=== PATIENT | female | born 2005 | race Two or more races ===

== ENCOUNTER 2024-09-02 06:40 | Emergency (ER) | payer MEDICAID, SELFPAY ==
[2024-09-02 06:41] VITALS: BMI 42.2
[2024-09-02 06:51] VITALS: BP 133/80; PULSE 109; RESP 16; TEMP 36.7; O2SAT 98
[2024-09-02] MEDS: ACETAMINOPHEN 500 MG TABLET 1000 MG PO (07:11)
[2024-09-02 07:35] LABS: Collection Type, Urine Clean Catch
[2024-09-02 07:42] LABS: Basophils # (Auto) 0.1 Thou/mm3 (0.0-0.2); Basophils % (Auto) 1 % (0-2.5); Eosinophils # (Auto) 1.5 Thou/mm3 (0.0-0.5); Eosinophils % (Auto) 14 % (0-10); Hematocrit 38.8 % (36.0-46.0); Hemoglobin 12.2 g/dL (12.0-16.0); Immature Granulocytes % (Auto) 0 % (0-0); Immature Granulocytes Auto 0.03 Thou/mm3 (0.00-0.00); Lymphocytes # (Auto) 2.6 Thou/mm3 (1.0-5.0); Lymphocytes % (Auto) 25 % (10-50); Mean Corpuscular HGB Conc 31.4 g/dl (31.0-37.0); Mean Corpuscular Hemoglobin 24.4 pg (25.0-35.0); Mean Corpuscular Volume 78 fL (80-100); Monocytes % (Auto) 9 % (0-12); Neutrophils # (Auto) 5.2 Thou/mm3 (1.8-7.7); Neutrophils % (Auto) 50 % (37-80); Nucleated Red Blood Cell % 0 /100 WBC (0); Platelet Count 417 Thou/mm3 (140-440); RDW Standard Deviation 39.8 fL (36.4-46.3); White Blood Count 10.3 Thou/mm3 (4.5-11.0)
--- NOTE | 2024-09-02 07:43 | XR_ITS ---
Examination: Transvaginal ultrasound of the pelvis, complete Technique: Transvaginal sonographic images pelvis performed using willis scale imaging Exam date and time: September 02, 2024 0742 hours INDICATIONS: Pelvic pain and vomiting beginning 2 months ago FINDINGS: Uterus 7.4 x 3.8 x 4.9 cm No uterine mass or intrauterine gestation Right ovary 3.1 x 2.2 x 2.2 cm arterial flow Left ovary 3.9 x 2.4 x 3.2 cm arterial flow, multiple follicles, the largest 20 mm Mild to moderate free fluid in the cul-de-sac IMPRESSION: No uterine mass or intrauterine gestation Mild to moderate free fluid in the cul-de-sac, clinical correlation advised.
[2024-09-02 07:51] LABS: HCG Qualitative,Urine Negative
[2024-09-02 07:55] LABS: Bilirubin,Urine Negative (Negative); Blood,Urine Negative (Negative); Clarity,Urine Clear (Clear/Hazy); Color,Urine Lt-Yellow (Lt Yel-Yel); Culture Indicated,Urine Not Indicated; Glucose, Urine Negative (Negative); Ketones,Urine Negative (Negative); Leukocyte Esterase,Urine Negative (Negative); Nitrite,Urine Negative (Negative); Protein,Urine Negative (Neg - Trace); RBC,Urine 1 /hpf (0-3); Specific Gravity,Urine 1.013 (1.001-1.035); Squamous Epithelial Cell,Urine 6 /hpf (0-5); Urobilinogen,Urine Negative mg/dL (0.0-1.0); WBC,Urine 2 /hpf (0-5)
[2024-09-02 08:00] LABS: Alanine Aminotransferase 57 U/L (10-49); Albumin, Serum 4.6 gm/dL (3.5-5.0); Albumin/Globulin Ratio 1.4 (1.2-2.2); Alkaline Phosphatase 99 U/L (46-116); Anion Gap 6 (7-16); Aspartate Amino Transferase 42 U/L (0-34); BUN/Creatinine Ratio 8 Ratio (12-20); Bilirubin,Total 0.6 mg/dL (0.3-1.2); Blood Urea Nitrogen 5 mg/dL (9-23); Calcium 9.4 mg/dL (8.3-10.6); Calcium (Corrected) 9.4 mg/dL (8.5-10.1); Chloride 105 mMol/L (98-107); Creatinine (Component) 0.6 mg/dL (0.6-1.3); Estimated Creatinine Clearance 184.4 mL/min (>60); Globulin 3.3 gm/dL (2.3-3.5); Glucose 108 mg/dL (74-106); Osmolality,Calculated 270 (275-295); Potassium 3.7 mMol/L (3.4-5.1); Sodium 136 mMol/L (136-145); Total Protein 7.9 gm/dL (5.7-8.2); eGFR > 60 See Note
--- NOTE | 2024-09-02 08:34 | EDNOTE_ITS ---
ED Abdominal Pain RME/HPI General Chief Complaint: Abdominal Pain Stated complaint: PELVIC PAIN FOR 2 MONTHS Time seen by provider: 09/02/24 06:43 Arrival date/time: 09/02/24 06:40 18-year-old female presents emergency department complaints of pelvic pain ongoing x 2 months patient reports no fever nausea or vomiting patient does report dysuria there are no other associated symptoms or aggravating factors no other modifying factors, patient denies taking medication before coming to ER today Limitations: no limitations Related Data Previous Rx's ?Medication ?Instructions ?Recorded acetaminophen 500 mg tablet 1,000 mg (2 x 500 mg) PO Q6H PRN 03/10/24 (Tylenol Extra Strength) pain #60 tabs ibuprofen 600 mg tablet 600 mg PO Q6H PRN pain #30 tabs 03/10/24 methocarbamol 500 mg tablet 1,000 mg (2 x 500 mg) PO Q8H PRN 03/10/24 muscle pain #30 tabs ondansetron 4 mg disintegrating 4 mg PO Q8H PRN nausea and 04/15/24 tablet vomiting #10 tabs doxycycline hyclate 100 mg tablet 100 mg PO BID #14 tabs 09/02/24 ibuprofen 800 mg tablet 800 mg PO TID PRN pain #30 tabs 09/02/24 tramadol 50 mg tablet 50 mg PO BID PRN pain #6 tabs 09/02/24 Allergies Allergy/AdvReac Type Severity Reaction Status Date / Time Penicillins Allergy Verified 09/02/24 06:40 shrimp Allergy Verified 09/02/24 06:40 Review of Systems Review of Systems Systems Reviewed: All systems reviewed, normal except as documented Constitutional Constitutional: Reports system reviewed and no additional complaints, except as documented, Denies fever(s) and Denies headache(s) Eyes Eyes: Reports system reviewed and no additional complaints, except as documented and Denies blurry vision ENT Ears, Nose, Mouth, and Throat: Reports system reviewed and no additional complaints, except as documented, Denies headache(s), Denies nasal congestion and Denies nasal discharge Cardiovascular Cardiovascular: Reports system reviewed and no additional complaints, except as documented, Denies chest pain and Denies dyspnea Respiratory Respiratory: Reports system reviewed and no additional complaints, except as documented, Denies chest congestion, Denies cough and Denies dyspnea Gastrointestinal Gastrointestinal: Reports system reviewed and no additional complaints, except as documented and Denies abdominal pain Genitourinary Genitourinary: Reports system reviewed and no additional complaints, except as documented, Denies abnormal vaginal bleeding and Reports pelvic pain Integumentary/Breasts Skin/Breast: Reports system reviewed and no additional complaints, except as documented and Denies rash Neurologic Neurologic: Reports system reviewed and no additional complaints, except as documented, Reports as per HPI and Denies headache(s) Past Medical History Past Medical History NEUROLOGIC: Negative Neurological Disorders CARDIAC: Negative Cardiac Disorders ED Exam General Limitations: Present no limitations General appearance: Present alert and in no apparent distress Head Head exam: Present atraumatic Eye Eye exam: Present normal appearance, PERRL and EOMI ENT ENT exam: Present normal exam, normal oropharynx and mucous membranes moist Neck Neck exam: Present normal inspection, full ROM and trachea midline Chest Chest inspection: Present normal inspection and symmetric chest wall rise Respiratory Respiratory exam: Present normal lung sounds bilaterally; Absent respiratory distress Cardiovascular Cardiovascular exam: Present regular rate, normal rhythm and normal heart sounds Abdominal Exam Abdominal exam: Present soft and normal bowel sounds; Absent distention, tenderness, guarding, rebound or rigidity Extremities Exam Extremities exam: Present normal inspection and full ROM Back Exam Back exam: Present normal inspection and full ROM Neurological Exam Neurological exam: Present alert, oriented X3 and CN II-XII intact Psychiatric Psychiatric exam: Present normal affect and normal mood Skin Skin exam: Present warm, dry, intact and normal color Course Quality Measures none Orders Category Date Time Status US transvaginal Stat Exams 09/02/24 07:43 Taken CBC Stat Lab 09/02/24 07:27 Completed Chlamydia/GC/TV - PCR Stat Lab 09/02/24 07:19 Received Comprehensive Metabolic Panel Stat Lab 09/02/24 07:27 Completed HCG Qualitative,Urine Stat Lab 09/02/24 07:19 Completed UA, C/S IF [Urinalysis, C/S if Indicated] Stat Lab 09/02/24 07:19 Completed Acetaminophen Tab [Tylenol ES Tab] Med 09/02/24 06:56 Discontinued 1,000 mg PO X1 ONE Vital Signs Vital signs: Vital Signs Temperature 98.0 F 09/02/24 06:51 Pulse Rate 109 H 09/02/24 06:51 Respiratory Rate 16 09/02/24 06:51 Blood Pressure 133/80 H 09/02/24 06:51 Pulse Oximetry (%) 98 09/02/24 06:51 Oxygen Delivery Method Room Air 09/02/24 06:51 O2 saturation 98% room air within normal limits Abdominal Pain MDM MDM Narrative MDM Narrative:: 18-year-old female presents emergency department complaints of pelvic pain ongoing x 2 months patient reports no fever nausea or vomiting patient does report dysuria there are no other associated symptoms or aggravating factors no other modifying factors, patient denies taking medication before coming to ER today On exam patient well-appearing patient does not appear ill or toxic patient's not appear in acute distress Lab work as well as ultrasound obtained ultrasound consistent with ovarian cyst GC chlamydia pending patient assures me she does not believe she has STD Patient discharged home in no distress to follow-up with primary care doctor in the next 24 to 48 hours and for any worsening symptoms to return to the ER immediately Patient data External records reviewed:: [facility] previous records Clinical information provided by:: patient Social determinants that could affect healthcare access:: none Patient has the following chronic illnesses:: None How is presenting disease/condition affected by chronic disease/condition?: no chronic disease Evaluation data The following diagnostics were reviewed and interpreted by me:: lab results and radiology exam(s) Lab and/or radiology exams considered but not ordered:: Labs and radiology obtained Interpretation Summary: Reviewed by me Medications / Prescriptions Medications or Prescriptions considered but not ordered:: Given Medication administrations:: Medication Administration History Discontinued Medications Acetaminophen (Acetaminophen 500 Mg Tablet) 1,000 mg PO X1 ONE Stop: 09/02/24 06:57 Last Admin: 09/02/24 07:11 Dose: 1,000 mg Documented By: RD Given Consultations Consultation(s) initiated? (list below): No Diagnosis Differential diagnosis abdominal pain: abdominal pain, calculus of kidney, small bowel obstruction and other (Pelvic pain) Most likely diagnosis given after review of the tests above:: Ovarian cyst Admission Indicated Admission indicated?: not indicated Admission Request Was there a request for admission?: No Disposition Plan Disposition Plan: Discharge Discharge Attestation Discharge Attestation: The patient and all family members were given an opportunity to ask questions and understood the discharge instructions. Discharge instructions specifically effects, indications for sooner follow up or return to the emergency department, and the expected course of current diagnosis. Patient condition: Stable Discharge Plan Plan Patient Disposition: HOME (Self Care) Disposition Comment: Stable Prescriptions/Referrals Prescriptions/Med Rec: New ibuprofen 800 mg tablet 800 mg PO TID PRN (Reason: pain) Qty: 30 0RF tramadol 50 mg tablet 50 mg PO BID PRN (Reason: pain) Qty: 6 0RF doxycycline hyclate 100 mg tablet 100 mg PO BID Qty: 14 0RF No Action ondansetron 4 mg tablet,disintegrating 4 mg PO Q8H PRN (Reason: nausea and vomiting) Qty: 10 0RF ibuprofen 600 mg tablet 600 mg PO Q6H PRN (Reason: pain) Qty: 30 0RF methocarbamol 500 mg tablet 1,000 mg PO Q8H PRN (Reason: muscle pain) Qty: 30 0RF acetaminophen [Tylenol Extra Strength] 500 mg tablet 1,000 mg PO Q6H PRN (Reason: pain) Qty: 60 0RF Referrals: Obed Givens MD [Primary Care Provider] - 09/03/24 Problem List Clinical Impression: Ovarian cyst, Pelvic pain Patient/Caregiver Discharge Instructions Education Materials: Ovarian Cysts Additional Instructions: Please follow up with your primary care doctor in the next 24-48hrs for any worsening symptoms return here immediately Print Language: Mosotho Stand Alone Forms: Lacy Award Info., Work/School Release, Patient Portal Info Letter PA/TONIO Supervising Physician JOSE/TONIO Supervising Physician: Dr engron
[2024-09-03 08:28] LABS: Chlamydia trachomatis PCR Negative (Not Detect); Neisseria Gonorrhoeae DNA PCR Negative (Not Detect); Trichomonas Negative (Negative)
== END 2024-09-02 09:17 | disposition home or self-care (01) ==
PROVIDERS: Nurse Practitioner Primary Care; Emergency Provider Emergency Medicine; PCP Family Medicine
DX: N83.02 Follicular cyst of left ovary (principal)
CPT/HCPCS: 36415; 76830; 80053; 81001; 81025; 85025; 87491; 87591; 87661; 99284; A9270